=== PATIENT | male | born 1985 | race Caucasian/White ===

== ENCOUNTER → 2021-10-05 | Outpatient (CLI) | payer BC ==
[~2021-10-05] MED LIST: AUGMENTIN 875875 MG PO; IBUPROFEN 800800 MG PO; NORCO 5-325 TA1 EACH PO; PREDNISONE 20 M20 M1 PO
== END ==
LOC: M.MRI 07:16
DX: S32.050G Wedge compression fracture of fifth lumbar vertebra, subsequent encounter for fracture with delayed healing (principal); M51.26 Other intervertebral disc displacement, lumbar region; M47.816 Spondylosis without myelopathy or radiculopathy, lumbar region; M48.061 Spinal stenosis, lumbar region without neurogenic claudication; M48.07 Spinal stenosis, lumbosacral region; G89.29 Other chronic pain; X58.XXXD Exposure to other specified factors, subsequent encounter